=== PATIENT | female | born 1990 | race Caucasian/White ===

== ENCOUNTER 2016-10-18 12:08 | Emergency (ER) | payer OTHER ==
[~2016-10-18] VITALS: Ht 172.7 cm; Wt 100.0 kg
[2016-10-18 13:18] LABS: HEMATOCRIT 36.5 % (36.0-46.0); MCH 27.8 PG (29.0-34.0); MCHC 32.9 G/DL (30.0-36.0); MCV 84.7 FL (83-99); MEAN PLAT.VOLUME 10.6 uM^3 (9.5-12.4); PLATELET COUNT 250 K/uL (156-360); RBC DIS.WIDTH-CV 13.2 % (11.8-14.6); RED BLOOD COUNT 4.31 M/uL (3.80-5.20); WHITE BLOOD COUNT 8.6 K/uL (4.1-10.2)
[2016-10-18 13:28] LABS: CHLORIDE 105 mEq/L (99-109); POTASSIUM 3.6 mEq/L (3.7-5.4); SODIUM 139 mEq/L (136-147)
[2016-10-18 13:31] LABS: GLUCOSE 103 mg/dL (70-99)
[2016-10-18 13:32] LABS: ANION GAP 13 MEQ/L (2-14)
[2016-10-18 13:33] LABS: TOTAL BILIRUBIN 1.3 mg/dL (0.0-1.0)
[2016-10-18 13:34] LABS: ALKALINE PHOSPHATASE 71 IU/L (3-129); GFR ESTIMATE (CALCULATED) > 59 mL/min/; SERUM ETHYL ALCOHOL < 10 mg/dL
[2016-10-18 13:35] LABS: UREA NITROGEN (BUN) 13 mg/dL (9-23)
[2016-10-18 13:38] LABS: LIPASE 22 U/L (1.0-51.0)
[2016-10-18 13:45] LABS: QUANTITATIVE HCG < 4.0 MIU/ML
[2016-10-18 13:55] LABS: ADD MIUA? YES; BILIRUBIN NEGATIVE; BLOOD NEGATIVE; COLOR YELLOW ((YELLOW)); GLUCOSE (STRIP) NEGATIVE; KETONES NEGATIVE; LEUKOCYTES SMALL; NITRITE NEGATIVE; PH, URINE 8.5 (5-8); PROTEIN (STRIP) 30; SPECIFIC GRAVITY 1.023 (1.000-1.030); UROBILINOGEN 0.2 MG/DL (0.2-1.0)
[2016-10-18 14:09] LABS: AMPHETAMINE NEGATIVE (500 ng/mL); BARBITURATES NEGATIVE (200 ng/mL); COCAINE NEGATIVE (150 ng/mL); INTERNAL CONTROLS VALID? YES; METHADONE NEGATIVE (200 ng/mL); METHAMPHETAMINE NEGATIVE (500 ng/mL); OPIATES (MORPHINE) NEGATIVE (100 ng/mL); OXYCODONE NEGATIVE (100 ng/mL); PHENCYCLIDINE NEGATIVE (25 ng/mL); PROPOXYPHENE NEGATIVE (300 ng/mL); THC CANNABINOIDS NEGATIVE (50 ng/mL); TRICYCLIC ANTIDEPRESSANTS NEGATIVE (300 ng/mL)
[2016-10-18 14:10] LABS: ADD MEDTOX COMMENT Y; BENZODIAZEPINES PRESUMPTIVE POSITIVE (150 ng/mL)
[2016-10-18 14:12] LABS: BACTERIA 2+; CASTS NONE SEEN /LPF; CRYSTALS NONE SEEN; EPITHELIAL CELLS 1+; MUCUS NONE SEEN; RED BLOOD CELLS NONE SEEN /HPF (0-5); UCUL ADDED? NO; WHITE BLOOD CELLS 0-5 /HPF (0-5)
[2016-10-18 14:55] LABS: BENZODIAZEPINES QUANT VALUE 0 NG/ML
[2016-10-18 15:07] LABS: BENZODIAZEPINES, URINE SCREEN Negative (200 ng/mL)
[2016-10-18 17:30] LABS: TOTAL BILIRUBIN 1.4 mg/dL (0.0-1.0)
[2016-10-18 17:31] LABS: ALKALINE PHOSPHATASE 65 IU/L (3-129)
[2016-10-18 17:33] LABS: DIRECT BILIRUBIN 0.6 mg/dL (0.0-0.3)
[2016-10-18] MEDS ORDERED: ZOFRAN4 MG PO (18:28)
[2016-10-18 18:38] LABS: HIV INDEX 0.08; HIV-1/2 AB/AG COMBO Nonreactive
[2016-10-18 19:20] VITALS: BP 109/63
== END 2016-10-18 19:29 | disposition home or self-care (01) ==
LOC: EME 12:08
PROVIDERS: Emergency Medicine
DX: T76.21XA Adult sexual abuse, suspected, initial encounter (principal); S20.372A Other superficial bite of left front wall of thorax, initial encounter; S31.41XA Laceration without foreign body of vagina and vulva, initial encounter; R10.2 Pelvic and perineal pain; R10.10 Upper abdominal pain, unspecified; R51 Headache; F17.200 Nicotine dependence, unspecified, uncomplicated
CPT/HCPCS: 74177; 80053; 80076; 81003; 83690; 84702; 84999; 85027; 86703; 99281; 99285; G0480; J0696; J7030